=== PATIENT | female | born 1995 | race Caucasian/White ===

== ENCOUNTER 2018-12-25 06:42 | Day surgery (SDC) | payer OTHER ==
[2018-12-25] VITALS (16 sets, daily range): BP systolic 105–126; BP diastolic 64–74; PULSE 84–110; RESP 16–19; Ht 152.4 cm; Wt 61.5 kg
[~2018-12-25] VITALS: Ht 152.4 cm; Wt 61.5 kg
[~2018-12-25 06:42] MED LIST: CEFAZOLIN 2 GM/50 ML (PMX) 50 ML IVPB ONE; SOD CHLORIDE 0.9% 1,000 ML IV SCH
--- NOTE | 2018-12-25 09:24 | PREAC ---
Date/Time of Note Date/Time of Note DATE: 12/25/18 TIME: 09:24 Anesthesia Eval and Record Evaluation Time Pre-Procedure Interview DATE: 12/25/18 TIME: 09:24 Age 23 Sex female NPO: 8 hrs Preoperative diagnosis gallstones Planned procedure lap choly Past Medical History Past Medical History: None Surgery & Anesthesia Issues No known issue Meds Anticoagulation: No Beta Justino within 24 hr: No Reason Beta Justino not given: Pt. not on B-Justino No Active Prescriptions or Reported Meds Current Medications Sodium Chloride 1,000 ml @ 75 mls/hr [id number] IV Last administered on 12/25/18at 07:00; Admin Dose 75 MLS/HR; Start 12/25/18 at 06:00; Stop 12/25/18 at 19:19 Meds reviewed: Yes Allergies Coded Allergies: No Known Drug Allergies (Unverified Allergy, Unknown, 12/24/18) Allergies Reviewed: Yes Labs/Studies Labs Reviewed: Reviewed by anesthesiologist test: Negative Pre-procedure Exam Last vitals Vital Signs Date Temp Pulse Resp B/P (MAP) Pulse Ox O2 O2 Flow FiO2 Time Delivery Rate 12/25/18 97.5 84 16 111/71 100 Room Air 07:32 (84) Airway: Adequate mouth opening, Adequate thyromental dist Mallampati: Mallampati III Teeth: Normal Lung: Normal Heart: Normal ASA Physical Status ASA physical status: 1 Emergency: None Pre-operative Attestations Prior to commencing anesthesia and surgery, the patient was re-evaluated, there was verification of: *The patient's identity *The results of appropriate recent lab work and preoperative vital signs *The above evaluation not changing prior to induction *Anesthetic plan, risk benefits, alternative and complications discussed with patient/family; questions answered; patient/family understands, accepts and wishes to proceed. VASU TURNER DO Dec 25, 2018 09:24
[2018-12-25] MEDS ORDERED: SUCCINYLCHOLINE CHLORIDE 100 MG/5 ML SYG IV ONE (09:26)
[2018-12-25] MEDS ORDERED: MIDAZOLAM 1 MG/ML 2 ML INJ ONE (09:26)
[2018-12-25] MEDS ORDERED: ROPIVACAINE 0.5 % 30 ML VIAL ONE (09:26)
[2018-12-25] MEDS ORDERED: DESFLURANE 15 MIN ONE (09:26)
[2018-12-25] MEDS ORDERED: LIDOCAINE 2% (SDV) 5 ML INJ ONE (09:26)
[2018-12-25] MEDS ORDERED: PROPOFOL 20 ML ONE (09:26)
[2018-12-25] MEDS ORDERED: ROCURONIUM 50 MG INJ ONE (09:26)
[2018-12-25] MEDS ORDERED: SUGAMMADEX SODIUM 200 MG/2 ML VIAL IV ONE (09:26)
[2018-12-25] MEDS ORDERED: HYDROmorphONE 1 MG/5 ML IV SYRINGE IV PRN ×3 (09:30)
[2018-12-25] MEDS ORDERED: CEFAZOLIN 1 GM INJ ONE (09:58)
[2018-12-25] MEDS ORDERED: ONDANSETRON 4 MG INJ ONE (09:58)
[2018-12-25] MEDS ORDERED: HYDROCODONE/APAP (5/325) TAB PO ONE (10:30)
--- NOTE | 2018-12-25 10:34 | OPR ---
Date/Time of Note Date/Time of Note DATE: 12/25/18 TIME: 10:31 Operative Report Procedure Date: Dec 25, 2018 Preoperative Diagnosis symptomatic gallstones Postoperative Diagnosis same Operation/Procedure Performed laparoscopic cholecystectomy Surgeon see signature line Bark Scaler Cullen Schroeder Anesthesia Type: general Estimated Blood Loss: 0 - 10 ml's Transfusion none Specimen gallbladder Grafts/Implants none Complications none Pt Condition Post Procedure: stable Indications This is a 23-year-old female with some tender gallstones. She requests surgical excision of her gallbladder. Risks alternatives benefits and percent were discussed the patient. Patient expressed understanding and consents to the operation. Procedure Description Patient is taken to the OR prepped and draped in usual sterile fashion. Surgical time is performed.. IV antibiotics were given. Infraumbilical transverse incision was made to 15 blade. Dissection with cardiac clearance of fascia. The fascia was grasped with Frankston's and divided with curved masses. 0 Vicryl stitches placed into the fascia. Royal trocar was introduced. Pneumoperitoneum is established. Midepigastric 12 mm optical trochars placed under direct position. Right upper quadrant upper flank 5 mm optical trochars were placed under direct physician. Upon initial inspection there are some adhesions to the gallbladder. These were taken down bluntly. The gallbladder is grasped with the fundus and retracted and lateral cephalad direction. [place] graspers were used to dissect out the cystic duct and cystic artery. The critical view was established. Cystic duct is divided with the clips proximal clip distal and the divisions performed laparoscopic scissors. Cystic artery was divided with 3 clips proximal completion divisions performed lap scopic scissors. The gallbladder is taken to the gallbladder bed. Good hemostasis status. The gallbladder is retrieved Endo Catch bag. Ports removed under direct physician. Overdiuresis tied down. Skin is closed and skin andrew. A tap block was provided by the anesthesiologist. Dry dressings were applied. Matt ELLSWORTH Dec 25, 2018 10:34
--- NOTE | 2018-12-25 10:44 | PAC ---
Date/Time of Note Date/Time of Note DATE: 12/25/18 TIME: 10:43 Post-Anesthesia Notes Post-Anesthesia Note Last documented vital signs Vital Signs Date Temp Pulse Resp B/P (MAP) Pulse Ox O2 O2 Flow FiO2 Time Delivery Rate 12/25/18 97.7 85 16 125/65 100 10:42 12/25/18 84 16 111/71 100 Room Air 07:32 (84) Activity: WNL Respiratory function: WNL Cardiovascular function: WNL Mental status: Baseline Pain reasonably controlled: Yes Hydration appropriate: Yes Nausea/Vomiting absent: Yes VASU TURNER DO Dec 25, 2018 10:44
== END 2018-12-25 12:20 | disposition home or self-care (01) ==
LOC: SDS 06:42
PROVIDERS: ATTEND Surgery
DX: K80.10 Calculus of gallbladder with chronic cholecystitis without obstruction (principal)
CPT/HCPCS: 47562; 88304; J0690; J2250; J2405; J2795; J3010; Z7512; Z7610